=== PATIENT | female | born 1975 | race Hispanic/Latino ===

== ENCOUNTER 2022-08-30 18:06 | Emergency (ER) | payer SELFPAY ==
[~2022-08-30] VITALS: Ht 157.5 cm; Wt 89.8 kg
[2022-08-30] MEDS ORDERED: ASPIRIN 325 MG TAB PO ONE (18:45)
[2022-08-30] MEDS ORDERED: SODIUM CHLORIDE FLUSH 10 ML SYR IV PRN (18:45)
[2022-08-30 19:06] LABS: BASOPHILS % 0.3 % (0.0-1.0); EOSINOPHILS # (AUTO) 0.1 (0.0-0.4); EOSINOPHILS % 1.6 % (0.0-6.0); HEMATOCRIT 36.6 % (34.2-44.1); HEMOGLOBIN 10.8 g/dL (12.0-16.0); LYMPHOCYTES # (AUTO) 2.3 (1.0-3.2); LYMPHOCYTES % 29.4 % (18.0-39.1); MEAN CORPUSCULAR HEMOGLOBIN 22.4 pg (28-32); MEAN CORPUSCULAR HGB CONC 29.5 g/dL (31-35); MEAN CORPUSCULAR VOLUME 75.8 fL (81-99); MONOCYTES # (AUTO) 0.5 (0.2-0.8); MONOCYTES % 6.9 % (4.4-11.3); NEUTROPHILS # (AUTO) 4.8 (2.1-6.9); NEUTROPHILS % 61.7 % (38.7-80.0); PLATELET COUNT 264 x10e3/uL (140-360); RED BLOOD COUNT 4.83 x10e6/uL (3.6-5.1); RED CELL DISTRIBUTION WIDTH 14.8 % (11.7-14.4)
[2022-08-30 19:11] LABS: INR 0.89; PARTIAL THROMBOPLASTIN TIME 25.4 seconds (23.8-35.5); PROTHROMBIN TIME 12.9 seconds (11.9-14.5)
[2022-08-30 19:16] LABS: AMPHETAMINES SCREEN,URINE NEGATIVE (NEGATIVE); BENZODIAZEPINES SCREEN,URINE NEGATIVE (NEGATIVE); PHENCYCLIDINE SCREEN,URINE NEGATIVE (NEGATIVE)
[2022-08-30 19:17] LABS: ALANINE AMINOTRANSFERASE 17 IU/L (0-55); ALBUMIN 3.7 g/dL (3.5-5.0); ALBUMIN/GLOBULIN RATIO 0.9 (0.8-2.0); ALKALINE PHOSPHATASE 87 IU/L (40-150); ANION GAP 15.9 mmol/L (8-16); BLOOD UREA NITROGEN 17 mg/dL (7-26); BUN/CREATININE RATIO 18 (6-25); CALCIUM 8.9 mg/dL (8.4-10.2); CARBON DIOXIDE 25 mmol/L (22-29); CHLORIDE 101 mmol/L (98-107); CREATININE, SERUM 0.93 mg/dL (0.57-1.11); GLUCOSE 212 mg/dL (74-118); POTASSIUM 3.9 mmol/L (3.5-5.1); SODIUM 138 mmol/L (136-145)
== END 2022-08-30 20:10 | disposition home or self-care (01) ==
LOC: ER 18:12
DX: R07.89 Other chest pain (principal); R06.00 Dyspnea, unspecified; E11.65 Type 2 diabetes mellitus with hyperglycemia; E78.5 Hyperlipidemia, unspecified
CPT/HCPCS: 36415; 71045; 80053; 80307; 84484; 84702; 85025; 85610; 85730; 93005; 99284